=== PATIENT | female | born 1930 | race Caucasian/White ===

== ENCOUNTER → 2017-02-07 | Outpatient (CLI) | payer MEDICARE ==
[~2017-02-07] MED LIST: METF500T4 BC; MULT-26 PO; NAPR220C2 PO; OMEP-110 PO; SIMV10TA3 PO
== END | disposition home or self-care (01) ==
LOC: CFH 09:59
PROVIDERS: ATTEND Internal Medicine
DX: J84.10 Pulmonary fibrosis, unspecified (principal); J84.9 Interstitial pulmonary disease, unspecified; J47.9 Bronchiectasis, uncomplicated; R91.8 Other nonspecific abnormal finding of lung field; I25.10 Atherosclerotic heart disease of native coronary artery without angina pectoris; I70.0 Atherosclerosis of aorta; M85.88 Other specified disorders of bone density and structure, other site; M47.894 Other spondylosis, thoracic region; Z90.49 Acquired absence of other specified parts of digestive tract; Z90.12 Acquired absence of left breast and nipple; Z85.3 Personal history of malignant neoplasm of breast; Z87.01 Personal history of pneumonia (recurrent); Z85.72 Personal history of non-Hodgkin lymphomas
CPT/HCPCS: 71250

== ENCOUNTER → 2017-09-25 | Outpatient (CLI) | payer MEDICARE ==
[~2017-09-25] MED LIST changes: +OMNIPAQUE 350 MG/ML, 100ML BOTTLE ONE
== END ==
LOC: CFH 10:47
PROVIDERS: ATTEND Internal Medicine
DX: J84.10 Pulmonary fibrosis, unspecified (principal); R59.9 Enlarged lymph nodes, unspecified; R91.8 Other nonspecific abnormal finding of lung field; Z85.72 Personal history of non-Hodgkin lymphomas; Z85.3 Personal history of malignant neoplasm of breast
CPT/HCPCS: 71275; 82565; Q9967

== ENCOUNTER 2018-05-04 11:22 | Inpatient (IN) | payer MEDICARE ==
[~2018-05-04] VITALS: Ht 154.9 cm; Wt 55.6 kg
[~2018-05-04 11:22] MED LIST changes: +METF500T17 BC; -METF500T4 BC; -OMNIPAQUE 350 MG/ML, 100ML BOTTLE ONE
[2018-05-04] MEDS ORDERED: SODIUM CHLORIDE FLUSH 10ML SYR IVF ONE (12:30)
[2018-05-04 12:40] LABS: MEAN CORPUSCULAR HEMOGLOBIN 28.9 pg (27.0-34.8); MEAN CORPUSCULAR HGB CONC 32.6 g/dL (32.4-35.8); MEAN CORPUSCULAR VOLUME 88.6 fL (80-100); MEAN PLATELET VOLUME 7.6 fL (7.4-10.4); PLATELET COUNT 284 x10^3/uL (130-400); RED BLOOD COUNT 4.07 x10^6/uL (3.82-5.3); RED CELL DISTRIBUTION WIDTH 13.9 % (9.6-15.2)
[2018-05-04 12:52] LABS: ANION GAP 5 mmol/L (5-15); CALCIUM 8.9 mg/dL (8.5-10.1); CHLORIDE 105 mmol/L (98-107); CREATININE 1.14 mg/dL (0.55-1.02); INTERNATIONAL NORMALIZED RATIO 1.18 (0.93-1.1); PROTHROMBIN TIME 12.1 Seconds (9.6-11.5)
[2018-05-04 12:53] LABS: BASOPHILS # (AUTO) 0.02 x10^3/uL (0-0.1); BASOPHILS % (AUTO) 0 % (0-1); EOSINOPHILS # (AUTO) 0.15 x10^3/uL (0-0.4); EOSINOPHILS % (AUTO) 1 % (1-7); LYMPHOCYTES # (AUTO) 1.04 x10^3/uL (1-3.4); LYMPHOCYTES % (AUTO) 7 % (22-44); MD SCAN; MONOCYTES # (AUTO) 0.69 x10^3/uL (0.2-0.8); MONOCYTES % (AUTO) 4 % (2-9); NEUTROPHILS # (AUTO) 13.94 x10^3/uL (1.8-6.8); NEUTROPHILS % (AUTO) 88 % (42-75)
[2018-05-04 12:56] LABS: TROPONIN I < 0.015 ng/mL (0.000-0.045)
[2018-05-04] MEDS ORDERED: SODIUM CHLORIDE 0.9% 1,000 ML IV SCH (15:11)
[2018-05-04] MEDS ORDERED: OMNIPAQUE 350 MG/ML, 100ML BOTTLE ONE (15:13)
[2018-05-04] MEDS ORDERED: ACETAMINOPHEN 325 MG TABLET PO PRN (15:30)
[2018-05-04] MEDS ORDERED: LABETALOL 5MG/ML, 20ML IVPush PRN (15:30)
[2018-05-04] MEDS ORDERED: ONDANSETRON 2MG/ML, 2ML IVPush PRN (15:30)
[2018-05-04] MEDS ORDERED: hydrALAzine 20 MG/ML, 1ML IVPush PRN (15:30)
[2018-05-04] MEDS ORDERED: FUROSEMIDE 20 MG/2 ML IV ONE (15:30)
[2018-05-04] MEDS ORDERED: ONDANSETRON ODT 4 MG PO PRN (15:30)
[2018-05-04 15:38] LABS: RAPID INFLUENZA A Negative (Negative); RAPID INFLUENZA B Negative (Negative)
[2018-05-04] MEDS ORDERED: FUROSEMIDE 20 MG/2 ML ONE (15:42)
[2018-05-04] MEDS ORDERED: CEFTRIAXONE PMX 1GM/50ML 50 ML ONE (15:43)
[2018-05-04 16:02] LABS: TROPONIN I < 0.015 ng/mL (0.000-0.045)
[2018-05-04 16:28] LABS: HEMOGLOBIN A1C 6.9 % (4.2-6.3)
[2018-05-04 16:39] VITALS: BP 125/61
[2018-05-04] MEDS: CEFTRIAXONE PMX 1GM/50ML 50 ML IV SCH (17:26)
[2018-05-04 18:08] LABS: CULTURE INDICATED? YES; MICROSCOPIC AUTO
[2018-05-04 20:24] VITALS: BP 107/65
[2018-05-04] MEDS: SIMVASTATIN 10 MG TABLET PO SCH (21:00)
[2018-05-04] MEDS: HEPARIN 5,000 UNITS/ML, 1ML SQ SCH (21:00)
[2018-05-04] MEDS: DOXYCYCLINE 100MG TABLET PO SCH (21:00)
[2018-05-04 21:59] LABS: TROPONIN I < 0.015 ng/mL (0.000-0.045)
[2018-05-05 02:59] VITALS: BP 103/62
[2018-05-05] MEDS: HEPARIN 5,000 UNITS/ML, 1ML SQ SCH ×3 (04:35→21:00)
[2018-05-05 05:53] LABS: BASOPHILS # (AUTO) 0.04 x10^3/uL (0-0.1); BASOPHILS % (AUTO) 0 % (0-1); EOSINOPHILS # (AUTO) 0.27 x10^3/uL (0-0.4); EOSINOPHILS % (AUTO) 2 % (1-7); LYMPHOCYTES # (AUTO) 1.46 x10^3/uL (1-3.4); LYMPHOCYTES % (AUTO) 11 % (22-44); MD NO; MEAN CORPUSCULAR HEMOGLOBIN 29.5 pg (27.0-34.8); MEAN CORPUSCULAR HGB CONC 32.7 g/dL (32.4-35.8); MEAN CORPUSCULAR VOLUME 90.3 fL (80-100); MEAN PLATELET VOLUME 7.8 fL (7.4-10.4); MONOCYTES # (AUTO) 0.94 x10^3/uL (0.2-0.8); MONOCYTES % (AUTO) 7 % (2-9); NEUTROPHILS % (AUTO) 80 % (42-75); PLATELET COUNT 284 x10^3/uL (130-400); RED BLOOD COUNT 3.93 x10^6/uL (3.82-5.3); RED CELL DISTRIBUTION WIDTH 13.9 % (9.6-15.2)
[2018-05-05 06:02] LABS: ANION GAP 8 mmol/L (5-15); CALCIUM 9.2 mg/dL (8.5-10.1); CHLORIDE 102 mmol/L (98-107); CREATININE 1.16 mg/dL (0.55-1.02)
[2018-05-05 07:00] VITALS: BP 113/66
[2018-05-05] MEDS: DOXYCYCLINE 100MG TABLET PO SCH ×2 (09:17→21:00)
[2018-05-05] MEDS: MULTIVITAMIN 1 TABLET PO SCH (09:17)
[2018-05-05] MEDS: OMEPRAZOLE 20 MG CAPSULE.DR PO SCH (09:17)
[2018-05-05 13:35] VITALS: BP 103/62
[2018-05-05] MEDS: CEFTRIAXONE PMX 1GM/50ML 50 ML IV SCH (16:31)
[2018-05-05 20:40] VITALS: BP 107/68
[2018-05-05] MEDS: SIMVASTATIN 10 MG TABLET PO SCH (21:00)
[2018-05-06 03:59] VITALS: BP 107/66
[2018-05-06] MEDS: HEPARIN 5,000 UNITS/ML, 1ML SQ SCH ×2 (03:59→12:01)
[2018-05-06 07:06] VITALS: BP 117/65
[2018-05-06] MEDS: OMEPRAZOLE 20 MG CAPSULE.DR PO SCH (08:25)
[2018-05-06] MEDS: MULTIVITAMIN 1 TABLET PO SCH (08:25)
[2018-05-06] MEDS: DOXYCYCLINE 100MG TABLET PO SCH ×2 (08:25→16:48)
[2018-05-06 08:30] LABS: BASOPHILS # (AUTO) 0.07 x10^3/uL (0-0.1); BASOPHILS % (AUTO) 1 % (0-1); EOSINOPHILS # (AUTO) 0.33 x10^3/uL (0-0.4); EOSINOPHILS % (AUTO) 3 % (1-7); LYMPHOCYTES # (AUTO) 1.35 x10^3/uL (1-3.4); LYMPHOCYTES % (AUTO) 11 % (22-44); MD NO; MEAN CORPUSCULAR HGB CONC 32.7 g/dL (32.4-35.8); MEAN CORPUSCULAR VOLUME 88.6 fL (80-100); MEAN PLATELET VOLUME 7.7 fL (7.4-10.4); MONOCYTES # (AUTO) 0.93 x10^3/uL (0.2-0.8); MONOCYTES % (AUTO) 8 % (2-9); NEUTROPHILS # (AUTO) 9.14 x10^3/uL (1.8-6.8); NEUTROPHILS % (AUTO) 77 % (42-75); PLATELET COUNT 296 x10^3/uL (130-400); RED BLOOD COUNT 4.28 x10^6/uL (3.82-5.3); RED CELL DISTRIBUTION WIDTH 14.3 % (9.6-15.2)
[2018-05-06 10:10] LABS: ANION GAP 6 mmol/L (5-15); CALCIUM 8.9 mg/dL (8.5-10.1); CHLORIDE 102 mmol/L (98-107)
[2018-05-06 10:12] LABS: CREATININE 1.25 mg/dL (0.55-1.02)
[2018-05-06 13:04] VITALS: BP 103/63
[2018-05-06] MEDS ORDERED: DOXY100T PO (15:34)
[2018-05-06] MEDS ORDERED: CEFD300C37 PO (15:34)
[2018-05-06] MEDS: CEFTRIAXONE PMX 1GM/50ML 50 ML IV SCH (15:59)
[2018-05-14] MEDS ORDERED: AZIT500T PO ×2 (10:33)
[2018-05-14] MEDS ORDERED: CEFD300C37 PO ×2 (10:33)
== END 2018-05-06 17:30 | disposition home or self-care (01) | DRG 871 ==
LOC: ED 13:57 → EDIP 14:08 → 4WST 16:02
PROVIDERS: ADMIT Internal Medicine; ATTEND Internal Medicine
DX: A41.9 Sepsis, unspecified organism (principal); J18.9 Pneumonia, unspecified organism; J96.00 Acute respiratory failure, unspecified whether with hypoxia or hypercapnia; N17.9 Acute kidney failure, unspecified; E11.9 Type 2 diabetes mellitus without complications; J98.4 Other disorders of lung; Z85.3 Personal history of malignant neoplasm of breast; Z85.72 Personal history of non-Hodgkin lymphomas; Z90.12 Acquired absence of left breast and nipple; Z90.710 Acquired absence of both cervix and uterus; Z99.81 Dependence on supplemental oxygen; Z90.49 Acquired absence of other specified parts of digestive tract
CPT/HCPCS: 36415; 71275; 80048; 81001; 83036; 83735; 83880; 84100; 84443; 84484; 85025; 85379; 85610; 85730; 87040; 87086; 87400; 93005; 93306; 99285; G0378; J0696; Q9967; J1940

== ENCOUNTER 2018-05-11 15:31 | Inpatient (IN) | payer MEDICARE ==
[~2018-05-11] VITALS: Ht 154.9 cm; Wt 52.9 kg
[~2018-05-11 15:31] MED LIST changes: +CEFD300C37 PO; +DOXY100T PO
[2018-05-11 16:30] LABS: BASOPHILS # (AUTO) 0.04 x10^3/uL (0-0.1); BASOPHILS % (AUTO) 0 % (0-1); EOSINOPHILS # (AUTO) 0.21 x10^3/uL (0-0.4); EOSINOPHILS % (AUTO) 2 % (1-7); LYMPHOCYTES # (AUTO) 1.42 x10^3/uL (1-3.4); LYMPHOCYTES % (AUTO) 10 % (22-44); MD NO; MEAN CORPUSCULAR HEMOGLOBIN 29.3 pg (27.0-34.8); MEAN CORPUSCULAR HGB CONC 32.7 g/dL (32.4-35.8); MEAN CORPUSCULAR VOLUME 89.6 fL (80-100); MEAN PLATELET VOLUME 7.8 fL (7.4-10.4); MONOCYTES # (AUTO) 0.81 x10^3/uL (0.2-0.8); MONOCYTES % (AUTO) 6 % (2-9); NEUTROPHILS # (AUTO) 11.93 x10^3/uL (1.8-6.8); NEUTROPHILS % (AUTO) 83 % (42-75); PLATELET COUNT 303 x10^3/uL (130-400); RED BLOOD COUNT 4.05 x10^6/uL (3.82-5.3); RED CELL DISTRIBUTION WIDTH 14.2 % (9.6-15.2)
[2018-05-11 16:40] LABS: ALBUMIN 3.2 g/dL (3.4-5.0); ANION GAP 8 mmol/L (5-15); CALCIUM 9.2 mg/dL (8.5-10.1); CHLORIDE 101 mmol/L (98-107)
[2018-05-11 16:43] LABS: CREATININE 1.22 mg/dL (0.55-1.02); TROPONIN I < 0.015 ng/mL (0.000-0.045)
[2018-05-11] MEDS ORDERED: PIPERACILLIN/TAZO/PMX 3.375GM 50 ML IV ONE (17:00)
[2018-05-11] MEDS ORDERED: PIPERACILLIN/TAZO/PMX 3.375GM 50 ML ONE (17:18)
[2018-05-11 17:24] LABS: CULTURE INDICATED? YES; MICROSCOPIC INDICATED
[2018-05-11] MEDS ORDERED: ACETAMINOPHEN 325 MG TABLET PO PRN (19:00)
[2018-05-11] MEDS ORDERED: hydrALAzine 20 MG/ML, 1ML IVPush PRN (19:00)
[2018-05-11] MEDS ORDERED: ENOXAPARIN 40 MG/0.4 ML SQ SCH (19:00)
[2018-05-11] MEDS ORDERED: ONDANSETRON ODT 4 MG PO PRN (19:00)
[2018-05-11] MEDS ORDERED: DOCUSATE 100 MG CAPSULE PO PRN (19:00)
[2018-05-11] MEDS ORDERED: GUAIFENESIN/DM 200-20MG, 10ML UDC PO PRN (19:00)
[2018-05-11] MEDS ORDERED: TEMAZEPAM 15 MG CAPSULE PO PRN (19:00)
[2018-05-11] MEDS: SIMVASTATIN 10 MG TABLET PO SCH (19:59)
[2018-05-11 20:03] VITALS: BP 119/66
[2018-05-11 22:00] VITALS: BP 119/66
[2018-05-11] MEDS: PIPERACILLIN/TAZO/PMX 3.375GM 50 ML IV SCH (23:12)
[2018-05-12 01:43] VITALS: BP 108/65
[2018-05-12] MEDS: PIPERACILLIN/TAZO/PMX 3.375GM 50 ML IV SCH ×4 (05:16→23:00)
[2018-05-12 07:35] VITALS: BP 108/69
[2018-05-12] MEDS: OMEPRAZOLE 20 MG CAPSULE.DR PO SCH (09:29)
[2018-05-12] MEDS: MULTIVITAMIN 1 TABLET PO SCH (09:29)
[2018-05-12 14:00] VITALS: BP 109/62
[2018-05-12] MEDS: ENOXAPARIN 30 MG/0.3 ML SQ SCH (20:00)
[2018-05-12] MEDS: SIMVASTATIN 10 MG TABLET PO SCH (20:14)
[2018-05-12 20:22] VITALS: BP 114/53
[2018-05-13 00:17] VITALS: BP 114/62
[2018-05-13 04:55] LABS: BASOPHILS # (AUTO) 0.02 x10^3/uL (0-0.1); BASOPHILS % (AUTO) 0 % (0-1); EOSINOPHILS # (AUTO) 0.32 x10^3/uL (0-0.4); EOSINOPHILS % (AUTO) 3 % (1-7); LYMPHOCYTES # (AUTO) 1.46 x10^3/uL (1-3.4); LYMPHOCYTES % (AUTO) 15 % (22-44); MD NO; MEAN CORPUSCULAR HEMOGLOBIN 29.1 pg (27.0-34.8); MEAN CORPUSCULAR HGB CONC 32.8 g/dL (32.4-35.8); MEAN CORPUSCULAR VOLUME 88.7 fL (80-100); MEAN PLATELET VOLUME 7.8 fL (7.4-10.4); MONOCYTES # (AUTO) 0.92 x10^3/uL (0.2-0.8); MONOCYTES % (AUTO) 9 % (2-9); NEUTROPHILS # (AUTO) 7.24 x10^3/uL (1.8-6.8); NEUTROPHILS % (AUTO) 73 % (42-75); PLATELET COUNT 272 x10^3/uL (130-400); RED BLOOD COUNT 3.69 x10^6/uL (3.82-5.3); RED CELL DISTRIBUTION WIDTH 14.3 % (9.6-15.2)
[2018-05-13 05:03] LABS: ANION GAP 7 mmol/L (5-15); CALCIUM 8.6 mg/dL (8.5-10.1); CHLORIDE 104 mmol/L (98-107); CREATININE 1.26 mg/dL (0.55-1.02)
[2018-05-13] MEDS: PIPERACILLIN/TAZO/PMX 3.375GM 50 ML IV SCH ×4 (05:11→23:40)
[2018-05-13 05:28] LABS: HEMOGLOBIN A1C 7.2 % (4.2-6.3)
[2018-05-13 06:47] VITALS: BP 109/52
[2018-05-13] MEDS: MULTIVITAMIN 1 TABLET PO SCH (08:51)
[2018-05-13] MEDS: OMEPRAZOLE 20 MG CAPSULE.DR PO SCH (08:51)
[2018-05-13 12:38] VITALS: BP 90/56
[2018-05-13 19:10] VITALS: BP 108/59
[2018-05-13] MEDS: ENOXAPARIN 30 MG/0.3 ML SQ SCH (20:00)
[2018-05-13] MEDS: SIMVASTATIN 10 MG TABLET PO SCH (20:14)
[2018-05-14 04:10] VITALS: BP 119/59
[2018-05-14] MEDS: PIPERACILLIN/TAZO/PMX 3.375GM 50 ML IV SCH ×2 (05:17→12:02)
[2018-05-14 05:53] LABS: ANION GAP 6 mmol/L (5-15); CHLORIDE 104 mmol/L (98-107); CREATININE 1.17 mg/dL (0.55-1.02)
[2018-05-14 07:07] VITALS: BP 113/67
[2018-05-14] MEDS: OMEPRAZOLE 20 MG CAPSULE.DR PO SCH (10:15)
[2018-05-14] MEDS: MULTIVITAMIN 1 TABLET PO SCH (10:15)
[2018-05-14] MEDS ORDERED: AZIT500T PO (10:33)
[2018-05-14] MEDS ORDERED: CEFD300C37 PO (10:33)
[2018-05-14] MEDS ORDERED: LACT1CAP24 PO (10:33)
== END 2018-05-14 14:30 | disposition home or self-care (01) | DRG 871 ==
LOC: ED 17:08 → EDIP 17:44 → 3NE 18:45 → 3NW 05-12 17:59 → DCLOUNGE 05-14 14:11
PROVIDERS: ADMIT Hospitalist; ATTEND Internal Medicine
DX: A41.9 Sepsis, unspecified organism (principal); J96.01 Acute respiratory failure with hypoxia; J15.9 Unspecified bacterial pneumonia; C85.90 Non-Hodgkin lymphoma, unspecified, unspecified site; J70.1 Chronic and other pulmonary manifestations due to radiation; N39.0 Urinary tract infection, site not specified; E11.21 Type 2 diabetes mellitus with diabetic nephropathy; Y84.2 Radiological procedure and radiotherapy as the cause of abnormal reaction of the patient, or of later complication, without mention of misadventure at the time of the procedure; I08.3 Combined rheumatic disorders of mitral, aortic and tricuspid valves; Z85.3 Personal history of malignant neoplasm of breast; Z90.12 Acquired absence of left breast and nipple; Z90.710 Acquired absence of both cervix and uterus; Z90.49 Acquired absence of other specified parts of digestive tract; Z88.2 Allergy status to sulfonamides; Z88.8 Allergy status to other drugs, medicaments and biological substances
CPT/HCPCS: 36415; 71045; 80048; 81001; 82040; 83036; 83605; 83880; 84145; 84484; 85025; 87040; 87086; 93005; 96365; 99285; G0378; J2543

== ENCOUNTER 2018-05-16 15:22 | Inpatient (IN) | payer MEDICARE ==
[~2018-05-16] VITALS: Ht 154.9 cm; Wt 51.2 kg
[~2018-05-16 15:22] MED LIST changes: +AZIT500T PO; +LACT1CAP24 PO
[2018-05-16 16:24] LABS: MEAN CORPUSCULAR HEMOGLOBIN 29.6 pg (27.0-34.8); MEAN CORPUSCULAR HGB CONC 32.8 g/dL (32.4-35.8); MEAN CORPUSCULAR VOLUME 90.1 fL (80-100); PLATELET COUNT 308 x10^3/uL (130-400); RED BLOOD COUNT 3.86 x10^6/uL (3.82-5.3); RED CELL DISTRIBUTION WIDTH 14.1 % (9.6-15.2)
[2018-05-16 16:32] LABS: ALBUMIN 3.2 g/dL (3.4-5.0); ANION GAP 7 mmol/L (5-15); CALCIUM 9.2 mg/dL (8.5-10.1); CHLORIDE 102 mmol/L (98-107); CREATININE 1.21 mg/dL (0.55-1.02)
[2018-05-16 16:36] LABS: TROPONIN I < 0.015 ng/mL (0.000-0.045)
[2018-05-16 16:49] LABS: BASOPHILS # (AUTO) 0.05 x10^3/uL (0-0.1); BASOPHILS % (AUTO) 0 % (0-1); EOSINOPHILS # (AUTO) 0.31 x10^3/uL (0-0.4); EOSINOPHILS % (AUTO) 2 % (1-7); LYMPHOCYTES # (AUTO) 1.34 x10^3/uL (1-3.4); LYMPHOCYTES % (AUTO) 9 % (22-44); MD SCAN; MONOCYTES # (AUTO) 1.05 x10^3/uL (0.2-0.8); MONOCYTES % (AUTO) 7 % (2-9); NEUTROPHILS # (AUTO) 12.87 x10^3/uL (1.8-6.8); NEUTROPHILS % (AUTO) 82 % (42-75)
[2018-05-16] MEDS ORDERED: CEFTRIAXONE PMX 1GM/50ML 50 ML ONE (17:46)
[2018-05-16] MEDS ORDERED: CEFTRIAXONE 1,000 MG in SODIUM CHLORIDE 0.9% 50 ML IVPB ONE (18:00)
[2018-05-16] MEDS ORDERED: AZITHROMYCIN 500 MG in SODIUM CHLORIDE 0.9% 250 ML IVPB ONE (18:00)
[2018-05-16] MEDS ORDERED: POLYETHYLENE GLYCOL 17 GM PACKET PO PRN (19:00)
[2018-05-16] MEDS ORDERED: GUAIFENESIN/DM 200-20MG, 10ML UDC PO PRN (19:00)
[2018-05-16] MEDS ORDERED: BISACODYL 10 MG SUPP PR PRN (19:00)
[2018-05-16] MEDS ORDERED: ONDANSETRON ODT 4 MG PO PRN (19:00)
[2018-05-16] MEDS ORDERED: VANCOMYCIN PER PHARMACY MC PRN (19:00)
[2018-05-16] MEDS ORDERED: ACETAMINOPHEN 325 MG TABLET PO PRN (19:00)
[2018-05-16 20:46] VITALS: BP 150/69
[2018-05-16 20:53] LABS: RAPID INFLUENZA A Negative (Negative); RAPID INFLUENZA B Negative (Negative)
[2018-05-16] MEDS: HEPARIN 5,000 UNITS/ML, 1ML SQ SCH (20:56)
[2018-05-16] MEDS ORDERED: PHARMACOKINETIC MONITORING MC PRN (21:00)
[2018-05-16] MEDS ORDERED: PHARMACOKINETIC CONSULTATION MC ONE (21:00)
[2018-05-16] MEDS: LACTOBACILLUS CHEW TABLET PO SCH (21:07)
[2018-05-16] MEDS: SIMVASTATIN 10 MG TABLET PO SCH (21:07)
[2018-05-16] MEDS: SODIUM CHLORIDE 0.9% 1,000 ML IV SCH (21:23)
[2018-05-16] MEDS: PIPERACILLIN/TAZO/PMX 3.375GM 50 ML IV SCH (21:23)
[2018-05-16] MEDS: VANCOMYCIN PMX 1GM/200ML 200 ML IV SCH (21:58)
[2018-05-17] MEDS: PIPERACILLIN/TAZO/PMX 3.375GM 50 ML IV SCH ×4 (01:27→19:22)
[2018-05-17] MEDS: HEPARIN 5,000 UNITS/ML, 1ML SQ SCH ×3 (02:26→19:20)
[2018-05-17 02:56] VITALS: BP 104/56
[2018-05-17 04:31] LABS: ALANINE AMINOTRANSFERASE 13 U/L (12-78); ALBUMIN 2.6 g/dL (3.4-5.0); ANION GAP 7 mmol/L (5-15); CALCIUM 8.5 mg/dL (8.5-10.1); CHLORIDE 105 mmol/L (98-107)
[2018-05-17 04:34] LABS: ALKALINE PHOSPHATASE 52 U/L (45-117); BASOPHILS # (AUTO) 0.05 x10^3/uL (0-0.1); BASOPHILS % (AUTO) 0 % (0-1); BILIRUBIN,TOTAL 0.3 mg/dL (0.2-1.0); CREATININE 1.16 mg/dL (0.55-1.02); EOSINOPHILS # (AUTO) 0.34 x10^3/uL (0-0.4); EOSINOPHILS % (AUTO) 3 % (1-7); LYMPHOCYTES # (AUTO) 1.55 x10^3/uL (1-3.4); LYMPHOCYTES % (AUTO) 13 % (22-44); MD NO; MEAN CORPUSCULAR HEMOGLOBIN 29.8 pg (27.0-34.8); MEAN CORPUSCULAR HGB CONC 33.3 g/dL (32.4-35.8); MEAN CORPUSCULAR VOLUME 89.7 fL (80-100); MEAN PLATELET VOLUME 7.9 fL (7.4-10.4); MONOCYTES # (AUTO) 1.11 x10^3/uL (0.2-0.8); MONOCYTES % (AUTO) 9 % (2-9); NEUTROPHILS # (AUTO) 8.93 x10^3/uL (1.8-6.8); NEUTROPHILS % (AUTO) 75 % (42-75); PLATELET COUNT 259 x10^3/uL (130-400); RED BLOOD COUNT 3.26 x10^6/uL (3.82-5.3); RED CELL DISTRIBUTION WIDTH 13.9 % (9.6-15.2); TOTAL PROTEIN 7.1 g/dL (6.4-8.2)
[2018-05-17] MEDS: SODIUM CHLORIDE 0.9% 1,000 ML IV SCH ×2 (06:25→21:44)
[2018-05-17 07:38] VITALS: BP 108/64
[2018-05-17] MEDS: SENNA/DOCUSATE TABLET PO SCH (09:00)
[2018-05-17] MEDS: LACTOBACILLUS CHEW TABLET PO SCH ×3 (10:35→21:43)
[2018-05-17] MEDS: MULTIVITAMIN 1 TABLET PO SCH (10:35)
[2018-05-17] MEDS: OMEPRAZOLE 20 MG CAPSULE.DR PO SCH (10:35)
[2018-05-17 14:05] VITALS: BP 101/49
[2018-05-17 20:02] VITALS: BP 107/60
[2018-05-17] MEDS: SIMVASTATIN 10 MG TABLET PO SCH (21:43)
[2018-05-18 00:06] VITALS: BP 125/66
[2018-05-18] MEDS: PIPERACILLIN/TAZO/PMX 3.375GM 50 ML IV SCH ×4 (00:54→20:14)
[2018-05-18] MEDS: HEPARIN 5,000 UNITS/ML, 1ML SQ SCH ×3 (03:35→19:00)
[2018-05-18 07:01] LABS: BASOPHILS # (AUTO) 0.02 x10^3/uL (0-0.1); BASOPHILS % (AUTO) 0 % (0-1); EOSINOPHILS # (AUTO) 0.39 x10^3/uL (0-0.4); EOSINOPHILS % (AUTO) 4 % (1-7); LYMPHOCYTES # (AUTO) 1.21 x10^3/uL (1-3.4); LYMPHOCYTES % (AUTO) 13 % (22-44); MD NO; MEAN CORPUSCULAR HEMOGLOBIN 29.5 pg (27.0-34.8); MEAN CORPUSCULAR HGB CONC 33.1 g/dL (32.4-35.8); MEAN CORPUSCULAR VOLUME 89.3 fL (80-100); MEAN PLATELET VOLUME 8.4 fL (7.4-10.4); MONOCYTES # (AUTO) 0.79 x10^3/uL (0.2-0.8); MONOCYTES % (AUTO) 8 % (2-9); NEUTROPHILS # (AUTO) 6.96 x10^3/uL (1.8-6.8); NEUTROPHILS % (AUTO) 74 % (42-75); PLATELET COUNT 237 x10^3/uL (130-400); RED BLOOD COUNT 3.27 x10^6/uL (3.82-5.3); RED CELL DISTRIBUTION WIDTH 13.4 % (9.6-15.2)
[2018-05-18 07:43] VITALS: BP 132/72
[2018-05-18] MEDS: OMEPRAZOLE 20 MG CAPSULE.DR PO SCH (07:57)
[2018-05-18] MEDS: LACTOBACILLUS CHEW TABLET PO SCH ×3 (07:57→20:14)
[2018-05-18] MEDS: MULTIVITAMIN 1 TABLET PO SCH (07:57)
[2018-05-18] MEDS: SENNA/DOCUSATE TABLET PO SCH (08:40)
[2018-05-18] MEDS: SODIUM CHLORIDE 0.9% 1,000 ML IV SCH (08:40)
[2018-05-18] MEDS: VANCOMYCIN PMX 1GM/200ML 200 ML IV SCH (09:44)
[2018-05-18] MEDS ORDERED: FUROSEMIDE 40 MG/4 ML IV ONE (10:30)
[2018-05-18 11:17] LABS: MICROSCOPIC AUTO
[2018-05-18 11:19] LABS: CULTURE INDICATED? NO
[2018-05-18 13:23] VITALS: BP 102/57
[2018-05-18] MEDS: SIMVASTATIN 10 MG TABLET PO SCH (20:15)
[2018-05-18 20:46] VITALS: BP 134/70
[2018-05-19] MEDS: PIPERACILLIN/TAZO/PMX 3.375GM 50 ML IV SCH ×4 (02:08→20:40)
[2018-05-19 02:58] VITALS: BP 146/79
[2018-05-19] MEDS: HEPARIN 5,000 UNITS/ML, 1ML SQ SCH ×3 (02:59→19:00)
[2018-05-19 07:13] VITALS: BP 123/69
[2018-05-19] MEDS ORDERED: FUROSEMIDE 20 MG/2 ML IV ONE ×2 (08:00→09:00)
[2018-05-19] MEDS: SENNA/DOCUSATE TABLET PO SCH ×2 (08:47→08:50)
[2018-05-19] MEDS: MULTIVITAMIN 1 TABLET PO SCH (08:47)
[2018-05-19] MEDS: OMEPRAZOLE 20 MG CAPSULE.DR PO SCH (08:47)
[2018-05-19] MEDS: LACTOBACILLUS CHEW TABLET PO SCH ×3 (08:47→23:01)
[2018-05-19 12:45] VITALS: BP 104/63
[2018-05-19 20:00] VITALS: BP 117/64
[2018-05-19] MEDS ORDERED: VANCOMYCIN PMX 1GM/200ML 200 ML IV SCH (22:00)
[2018-05-19] MEDS: SIMVASTATIN 10 MG TABLET PO SCH (23:01)
[2018-05-20 01:02] VITALS: BP 112/65
[2018-05-20] MEDS: HEPARIN 5,000 UNITS/ML, 1ML SQ SCH ×3 (01:51→18:27)
[2018-05-20] MEDS: PIPERACILLIN/TAZO/PMX 3.375GM 50 ML IV SCH ×4 (01:52→20:40)
[2018-05-20 07:03] VITALS: BP 126/69
[2018-05-20] MEDS: SENNA/DOCUSATE TABLET PO SCH (09:00)
[2018-05-20] MEDS: OMEPRAZOLE 20 MG CAPSULE.DR PO SCH (10:24)
[2018-05-20] MEDS: LACTOBACILLUS CHEW TABLET PO SCH ×3 (10:24→20:46)
[2018-05-20] MEDS: MULTIVITAMIN 1 TABLET PO SCH (10:24)
[2018-05-20] MEDS ORDERED: POTASSIUM CHLORIDE 20 MEQ TAB.ER.PRT PO ONE (10:30)
[2018-05-20] MEDS ORDERED: FUROSEMIDE 20 MG/2 ML IV ONE (10:30)
[2018-05-20 13:12] VITALS: BP 122/62
[2018-05-20] MEDS: FUROSEMIDE 20 MG/2 ML IV SCH (17:20)
[2018-05-20] MEDS: POTASSIUM CHLORIDE 20 MEQ TAB.ER.PRT PO SCH (17:20)
[2018-05-20 19:32] VITALS: BP 118/68
[2018-05-20] MEDS: SIMVASTATIN 10 MG TABLET PO SCH (20:47)
[2018-05-20 22:56] LABS: CLOSTRIDIUM DIFFICILE ANTIGEN NEGATIVE; CLOSTRIDIUM DIFFICILE TOXIN NEGATIVE (Negative)
[2018-05-21 00:49] VITALS: BP 151/84
[2018-05-21] MEDS: PIPERACILLIN/TAZO/PMX 3.375GM 50 ML IV SCH ×5 (02:14→23:30)
[2018-05-21] MEDS: HEPARIN 5,000 UNITS/ML, 1ML SQ SCH ×3 (02:34→19:00)
[2018-05-21 06:53] VITALS: BP 123/69
[2018-05-21] MEDS: FUROSEMIDE 20 MG/2 ML IV SCH ×2 (08:19→17:09)
[2018-05-21] MEDS: OMEPRAZOLE 20 MG CAPSULE.DR PO SCH (08:20)
[2018-05-21] MEDS: POTASSIUM CHLORIDE 20 MEQ TAB.ER.PRT PO SCH ×2 (08:20→17:09)
[2018-05-21] MEDS: LACTOBACILLUS CHEW TABLET PO SCH ×3 (08:20→20:54)
[2018-05-21] MEDS: SENNA/DOCUSATE TABLET PO SCH (08:20)
[2018-05-21] MEDS: MULTIVITAMIN 1 TABLET PO SCH (08:20)
[2018-05-21] MEDS ORDERED: LOPERAMIDE 2 MG CAPSULE PO PRN (11:30)
[2018-05-21 12:20] VITALS: BP 102/63
[2018-05-21 19:06] VITALS: BP 117/64
[2018-05-21] MEDS: SIMVASTATIN 10 MG TABLET PO SCH (20:54)
[2018-05-22] MEDS: HEPARIN 5,000 UNITS/ML, 1ML SQ SCH ×2 (03:00→10:45)
[2018-05-22 04:34] VITALS: BP 126/76
[2018-05-22 04:56] LABS: ANION GAP 8 mmol/L (5-15); CALCIUM 8.9 mg/dL (8.5-10.1); CHLORIDE 102 mmol/L (98-107); CREATININE 1.71 mg/dL (0.55-1.02)
[2018-05-22] MEDS: PIPERACILLIN/TAZO/PMX 3.375GM 50 ML IV SCH ×2 (05:08→10:55)
[2018-05-22 07:24] VITALS: BP 118/73
[2018-05-22] MEDS: LACTOBACILLUS CHEW TABLET PO SCH (08:44)
[2018-05-22] MEDS: FUROSEMIDE 20 MG/2 ML IV SCH (08:44)
[2018-05-22] MEDS: OMEPRAZOLE 20 MG CAPSULE.DR PO SCH (08:44)
[2018-05-22] MEDS: POTASSIUM CHLORIDE 20 MEQ TAB.ER.PRT PO SCH (08:44)
[2018-05-22] MEDS: MULTIVITAMIN 1 TABLET PO SCH (08:44)
[2018-05-22] MEDS: SENNA/DOCUSATE TABLET PO SCH (08:45)
[2018-05-22] MEDS ORDERED: AZITHROMYCIN 500 MG TABLET PO SCH (12:00)
[2018-05-22 12:20] LABS: BASOPHILS # (AUTO) 0.25 x10^3/uL (0-0.1); BASOPHILS % (AUTO) 3 % (0-1); EOSINOPHILS # (AUTO) 0.47 x10^3/uL (0-0.4); EOSINOPHILS % (AUTO) 5 % (1-7); LYMPHOCYTES # (AUTO) 1.42 x10^3/uL (1-3.4); LYMPHOCYTES % (AUTO) 14 % (22-44); MD NO; MEAN CORPUSCULAR HEMOGLOBIN 29.2 pg (27.0-34.8); MEAN CORPUSCULAR VOLUME 88.6 fL (80-100); MEAN PLATELET VOLUME 8.3 fL (7.4-10.4); MONOCYTES # (AUTO) 0.95 x10^3/uL (0.2-0.8); MONOCYTES % (AUTO) 10 % (2-9); NEUTROPHILS % (AUTO) 69 % (42-75); PLATELET COUNT 282 x10^3/uL (130-400); RED BLOOD COUNT 3.57 x10^6/uL (3.82-5.3); RED CELL DISTRIBUTION WIDTH 14.2 % (9.6-15.2)
[2018-05-22 13:00] VITALS: BP 115/73
[2018-05-22] MEDS ORDERED: AZIT500T5 PO (13:38)
== END 2018-05-22 15:19 | disposition home or self-care (01) | DRG 871 ==
LOC: ED 16:27 → EDIP 18:36 → 3NW 20:16 → DCLOUNGE 05-22 15:05
PROVIDERS: ADMIT Hospitalist; ATTEND Family Medicine
DX: A41.9 Sepsis, unspecified organism (principal); J15.9 Unspecified bacterial pneumonia; J96.21 Acute and chronic respiratory failure with hypoxia; I50.33 Acute on chronic diastolic (congestive) heart failure; E44.1 Mild protein-calorie malnutrition; Z90.12 Acquired absence of left breast and nipple; Z85.3 Personal history of malignant neoplasm of breast; Z92.21 Personal history of antineoplastic chemotherapy; E78.5 Hyperlipidemia, unspecified; Y95 Nosocomial condition; Z90.49 Acquired absence of other specified parts of digestive tract; Z90.710 Acquired absence of both cervix and uterus; Z90.721 Acquired absence of ovaries, unilateral; Z88.2 Allergy status to sulfonamides; Z88.6 Allergy status to analgesic agent; Z68.21 Body mass index [BMI] 21.0-21.9, adult; Z85.828 Personal history of other malignant neoplasm of skin; E11.9 Type 2 diabetes mellitus without complications; Y84.2 Radiological procedure and radiotherapy as the cause of abnormal reaction of the patient, or of later complication, without mention of misadventure at the time of the procedure; Z85.72 Personal history of non-Hodgkin lymphomas; I27.20 Pulmonary hypertension, unspecified; Z87.01 Personal history of pneumonia (recurrent); Z92.3 Personal history of irradiation; Z99.81 Dependence on supplemental oxygen
CPT/HCPCS: 36415; 71045; 71046; 80048; 80053; 80202; 81001; 82040; 83605; 84145; 84484; 85025; 86480; 86738; 87040; 87070; 87081; 87205; 87324; 87400; 87449; 87633; 93005; 96374; 99285; G0378; J0696; J1940; J2543; J3370; J7030

== ENCOUNTER 2018-06-04 08:16 | Day surgery (SDC) | payer MEDICARE ==
[~2018-06-04] VITALS: Ht 154.9 cm; Wt 50.3 kg
[~2018-06-04 08:16] MED LIST changes: +AZIT500T5 PO; +LACT1CAP35 PO; +LIDOCAINE 2%, 20ML ONE; +METF500T17 PO; +OMEG-69 PO; +PROP10DR3 EACHEYE; +PSYL0.528 PO; +VIT1CAPS42 PO
[2018-06-04] MEDS ORDERED: FENTANYL PF 100 MCG/2ML ONE (08:23)
[2018-06-04] MEDS ORDERED: MIDAZOLAM 1 MG/ML, 5ML ONE ×2 (08:23)
[2018-06-04 09:15] VITALS: BP 138/71
[2018-06-04 09:49] LABS: BASOPHILS % (AUTO) 0 % (0-1); EOSINOPHILS # (AUTO) 0.27 x10^3/uL (0-0.4); EOSINOPHILS % (AUTO) 2 % (1-7); LYMPHOCYTES # (AUTO) 0.93 x10^3/uL (1-3.4); LYMPHOCYTES % (AUTO) 7 % (22-44); MD NO; MEAN CORPUSCULAR HEMOGLOBIN 28.8 pg (27.0-34.8); MEAN CORPUSCULAR HGB CONC 32.6 g/dL (32.4-35.8); MEAN CORPUSCULAR VOLUME 88.3 fL (80-100); MEAN PLATELET VOLUME 7.3 fL (7.4-10.4); MONOCYTES # (AUTO) 0.74 x10^3/uL (0.2-0.8); MONOCYTES % (AUTO) 6 % (2-9); NEUTROPHILS # (AUTO) 11.37 x10^3/uL (1.8-6.8); NEUTROPHILS % (AUTO) 85 % (42-75); PLATELET COUNT 296 x10^3/uL (130-400); RED BLOOD COUNT 3.64 x10^6/uL (3.82-5.3); RED CELL DISTRIBUTION WIDTH 14.4 % (9.6-15.2)
[2018-06-04 09:53] LABS: MICROSCOPIC INDICATED
[2018-06-04] MEDS ORDERED: SODIUM CHLORIDE 0.9% 1,000 ML IV SCH (10:00)
[2018-06-04 10:01] LABS: INTERNATIONAL NORMALIZED RATIO 1.19 (0.93-1.1); PROTHROMBIN TIME 12.5 Seconds (9.6-11.5)
== END 2018-06-04 13:15 | disposition home or self-care (01) ==
LOC: OUT 08:16
PROVIDERS: ATTEND Internal Medicine
DX: J98.4 Other disorders of lung (principal); I50.9 Heart failure, unspecified; J96.11 Chronic respiratory failure with hypoxia; E11.9 Type 2 diabetes mellitus without complications; E78.5 Hyperlipidemia, unspecified; Z79.899 Other long term (current) drug therapy; Z90.710 Acquired absence of both cervix and uterus; Z90.49 Acquired absence of other specified parts of digestive tract; Z90.721 Acquired absence of ovaries, unilateral; Z88.6 Allergy status to analgesic agent; Z88.2 Allergy status to sulfonamides; Z85.3 Personal history of malignant neoplasm of breast; Z88.8 Allergy status to other drugs, medicaments and biological substances; Z98.890 Other specified postprocedural states
CPT/HCPCS: 31624; 31628; 36415; 71045; 81001; 85025; 85610; 85730; 87015; 87070; 87077; 87086; 87102; 87116; 87205; 87206; 88108; 88112; 88305; 88312; 99152; 99153; J2250; J3010; J3490; J7030; 87186

== ENCOUNTER → 2018-07-02 | Outpatient (CLI) | payer MEDICARE ==
[~2018-07-02] MED LIST changes: -LIDOCAINE 2%, 20ML ONE; +OMNIPAQUE 350 MG/ML, 100ML BOTTLE ONE
== END | disposition home or self-care (01) ==
LOC: CFH 09:08
PROVIDERS: ATTEND Internal Medicine
DX: J84.9 Interstitial pulmonary disease, unspecified (principal); J43.9 Emphysema, unspecified; Z85.3 Personal history of malignant neoplasm of breast; Z85.72 Personal history of non-Hodgkin lymphomas
CPT/HCPCS: 74177; Q9967

== ENCOUNTER → 2018-07-09 | Outpatient (CLI) | payer MEDICARE ==
[~2018-07-09] MED LIST changes: -OMNIPAQUE 350 MG/ML, 100ML BOTTLE ONE
== END | disposition home or self-care (01) ==
LOC: LAB 11:08
PROVIDERS: ATTEND Internal Medicine Infectious Disease
DX: J44.0 Chronic obstructive pulmonary disease with (acute) lower respiratory infection (principal); J15.9 Unspecified bacterial pneumonia; R70.0 Elevated erythrocyte sedimentation rate; R79.82 Elevated C-reactive protein (CRP)
CPT/HCPCS: 36415; 86480

== ENCOUNTER → 2018-10-03 | Outpatient (CLI) | payer MEDICARE | END | disposition home or self-care (01) | LOC: CFH 08:42 | PROVIDERS: ATTEND Internal Medicine Cardiovascular Disease | DX: I08.3 Combined rheumatic disorders of mitral, aortic and tricuspid valves (principal); E78.5 Hyperlipidemia, unspecified; Z85.3 Personal history of malignant neoplasm of breast; Z85.72 Personal history of non-Hodgkin lymphomas | CPT/HCPCS: 93306 ==

== ENCOUNTER → 2019-09-17 | Outpatient (CLI) | payer MEDICARE ==
[~2019-09-17] MED LIST changes: +AZIT500T10 PO; -AZIT500T5 PO; +SIMV10TA18 PO; -SIMV10TA3 PO
== END | disposition home or self-care (01) ==
LOC: CARD 14:08
PROVIDERS: ATTEND Internal Medicine
DX: R06.02 Shortness of breath (principal)
CPT/HCPCS: 94010; 94618; 94726; 94729

== ENCOUNTER → 2020-10-24 | Outpatient (CLI) | payer MEDICARE | END | disposition home or self-care (01) | LOC: RAD 09:20 → EDSTATUS 10:00 | PROVIDERS: ATTEND Internal Medicine Nephrology | DX: E11.22 Type 2 diabetes mellitus with diabetic chronic kidney disease (principal); R31.9 Hematuria, unspecified; N18.32 Chronic kidney disease, stage 3b | CPT/HCPCS: 76770 ==

== ENCOUNTER 2020-12-14 06:04 | Day surgery (SDC) | payer MEDICARE ==
[~2020-12-14] VITALS: Ht 156.2 cm; Wt 53.0 kg
[2020-12-14 06:51] VITALS: BP 164/95
[2020-12-14 07:15] VITALS: BP 155/76
[2020-12-14] MEDS ORDERED: SODIUM CHLORIDE 0.9% 1,000 ML IV SCH (07:30)
[2020-12-14 07:58] LABS: INTERNATIONAL NORMALIZED RATIO 1.16 (0.93-1.1); PROTHROMBIN TIME 12.4 Seconds (9.6-11.5)
[2020-12-14] MEDS ORDERED: NALOXONE 1 MG/ML, 2ML ONE (08:17)
[2020-12-14] MEDS ORDERED: MIDAZOLAM 1 MG/ML, 5ML ONE (08:17)
[2020-12-14] MEDS ORDERED: FLUMAZENIL 0.1 MG/1 ML, 5ML ONE (08:17)
[2020-12-14] MEDS ORDERED: FENTANYL PF 100 MCG/2ML ONE (08:17)
[2020-12-14] MEDS ORDERED: LIDOCAINE-MPF 1%, 5ML ONE (08:21)
== END 2020-12-14 10:55 | disposition home or self-care (01) ==
LOC: OUT 06:04
PROVIDERS: ATTEND Internal Medicine Nephrology
DX: R31.9 Hematuria, unspecified (principal); E11.22 Type 2 diabetes mellitus with diabetic chronic kidney disease; N18.30 Chronic kidney disease, stage 3 unspecified; I50.30 Unspecified diastolic (congestive) heart failure; E78.5 Hyperlipidemia, unspecified; Z79.84 Long term (current) use of oral hypoglycemic drugs; Z79.899 Other long term (current) drug therapy; Z88.2 Allergy status to sulfonamides; Z88.8 Allergy status to other drugs, medicaments and biological substances; Z90.710 Acquired absence of both cervix and uterus; Z99.81 Dependence on supplemental oxygen; Z83.3 Family history of diabetes mellitus; Z82.49 Family history of ischemic heart disease and other diseases of the circulatory system; Z84.1 Family history of disorders of kidney and ureter
CPT/HCPCS: 36415; 50200; 77012; 85610; 88300; 99156; 99157; J2250; J3010; J7030; J2310

== ENCOUNTER → 2021-02-24 | Outpatient (CLI) | payer MEDICARE ==
[2021-02-24 09:58] LABS: BASOPHILS % (AUTO) 1 % (0-1); EOSINOPHILS % (AUTO) 1 % (1-7); LYMPHOCYTES % (AUTO) 16 % (22-44); MEAN CORPUSCULAR HEMOGLOBIN 29.3 pg (27.0-34.8); MEAN PLATELET VOLUME 7.8 fL (7.4-10.4); MONOCYTES % (AUTO) 9 % (2-9); NEUTROPHILS % (AUTO) 73 % (42-75); PLATELET COUNT 238 x10^3/uL (130-400); RED BLOOD COUNT 3.95 x10^6/uL (3.82-5.3); RED CELL DISTRIBUTION WIDTH 15.6 % (9.6-15.2)
[2021-02-24 10:11] LABS: % IRON SATURATION 29 % (20-55); ANION GAP 9 mmol/L (5-15); BILIRUBIN,TOTAL 0.7 mg/dL (0.2-1.0); CALCIUM 9.1 mg/dL (8.5-10.1); CHLORIDE 103 mmol/L (98-107); CREATININE 1.25 mg/dL (0.55-1.02); IRON LEVEL 72 mcg/dL (50-170); TOTAL IRON BINDING CAPACITY 250 mcg/dL (250-450)
[2021-02-24 10:12] LABS: ALANINE AMINOTRANSFERASE 17 U/L (12-78); ALBUMIN 3.7 g/dL (3.4-5.0); ALKALINE PHOSPHATASE 74 U/L (45-117); CHOL/HDL RATIO 3.3; CHOLESTEROL, TOTAL 216 mg/dL (140-239); HDL CHOL % 30 % (28-40); HDL CHOLESTEROL (DIRECT) 65 mg/dL (40-60); LDL CHOLESTEROL,CALCULATED 130 mg/dL (54-169); TOTAL PROTEIN 8.1 g/dL (6.4-8.2); TRIGLYCERIDES 105 mg/dL (50-200); VLDL CHOLESTEROL 21 mg/dL (0-25)
== END | disposition home or self-care (01) ==
LOC: LAB 09:15
PROVIDERS: ATTEND Internal Medicine
DX: I11.0 Hypertensive heart disease with heart failure (principal); I50.30 Unspecified diastolic (congestive) heart failure; D64.9 Anemia, unspecified; E11.42 Type 2 diabetes mellitus with diabetic polyneuropathy; I36.1 Nonrheumatic tricuspid (valve) insufficiency; I34.2 Nonrheumatic mitral (valve) stenosis; I34.0 Nonrheumatic mitral (valve) insufficiency; E78.2 Mixed hyperlipidemia; E11.9 Type 2 diabetes mellitus without complications; E11.21 Type 2 diabetes mellitus with diabetic nephropathy
CPT/HCPCS: 36415; 80053; 80061; 82043; 82570; 82728; 83036; 83540; 83550; 85025